=== PATIENT | male | born 1965 | race Caucasian/White ===

== ENCOUNTER 2021-06-24 08:21 | Emergency (ER) | payer OTHER ==
[~2021-06-24] VITALS: Ht 195.6 cm; Wt 140.6 kg
[2021-06-24 09:15] LABS: Calcium, Ionized (POC) 1.02 mmol/L (1.10-1.46); Chloride (POC) 92 mmol/L (98-108); Creatinine (POC) 1.8 mg/dL (0.8-1.3); Glucose (ISTAT POC) 139 mg/dL (70-99); Hemoglobin (POC) 17.7 g/dL (13.5-17.5); Potassium (POC) 3.1 mmol/L (3.5-5.5); Sodium (POC) 125 mmol/L (135-148); Total CO2 (POC) 17 mmol/L (21-32)
[2021-06-24 09:24] LABS: BASOPHILS ABSOLUTE AUTO 0.01 K/mm3 (0.00-0.23); BASOPHILS PERCENT AUTO 0 % (0-2); EOSINOPHILS PERCENT AUTO 0 % (0-6); Hematocrit 48.7 % (37.0-53.0); Hemoglobin 17.9 g/dL (13.5-17.5); IMMATURE GRAN ABSOLUTE AUTO 0.02 K/mm3 (0.00-0.10); IMMATURE GRAN PERCENT AUTO 0 % (0-1); LYMPHOCYTES ABSOLUTE AUTO 1.41 K/mm3 (0.84-5.20); LYMPHOCYTES PERCENT AUTO 26 % (21-46); MONOCYTES ABSOLUTE AUTO 0.38 K/mm3 (0.16-1.47); MONOCYTES PERCENT AUTO 7 % (4-13); Mean Corpuscular HGB 27.7 pg (26.0-34.0); Mean Corpuscular HGB Conc 36.8 g/dL (31.5-36.5); Mean Corpuscular Volume 75 fL (80-100); Mean Platelet Volume 11.2 fL (9.1-12.4); NEUTROPHILS PERCENT AUTO 66 % (41-73); Platelet Count 137 K/mm3 (150-400); RDW Coefficient Variation 13.1 % (11.7-14.2); Red Blood Cell Count 6.46 M/mm3 (4.30-5.90); White Blood Cell Count 5.42 K/mm3 (4.00-11.30)
[2021-06-24 09:41] LABS: Albumin, Blood 3.1 g/dL (3.4-5.0); Albumin/Globulin Ratio 0.8 (0.8-1.8); Bilirubin, Total 0.5 mg/dL (0.1-1.0); Bun/Creatinine Ratio 15.3 (12.0-20.0); Calcium, Blood 8.3 mg/dL (8.5-10.1); Creatinine, Blood 1.63 mg/dL (0.60-1.20); Globulin, Blood 4.1 g/dL (2.2-4.0); Magnesium, Blood 2.1 mg/dL (1.6-2.4); Total Protein, Blood 7.2 g/dL (6.4-8.2)
[2021-06-24] MEDS ORDERED: DECADRON6 M1 PO (12:05)
== END 2021-06-24 14:00 | disposition home or self-care (01) ==
LOC: ER 08:21
PROVIDERS: Emergency Medicine
DX: U07.1 COVID-19 (principal); J12.82 Pneumonia due to coronavirus disease 2019; R09.02 Hypoxemia; R56.9 Unspecified convulsions
CPT/HCPCS: 70450; 71045; 80047; 80053; 83735; 85014; 85025; 93005; 93010; 96361; 96374; 99285-25; A9270; J1100; J7030

== ENCOUNTER 2021-06-27 08:35 | Inpatient (IN) | payer OTHER ==
[~2021-06-27] VITALS: Ht 193 cm; Wt 153.5 kg
[~2021-06-27 08:35] MED LIST: DECADRON6 M1 PO
[2021-06-27 09:15] LABS: PCO2 Arterial 25.5 mmHg (35-45); PO2 Arterial 48.6 mmHg (80-100); pH Blood Arterial 7.55 (7.35-7.45)
[2021-06-27 09:33] LABS: BASOPHILS ABSOLUTE AUTO 0.01 K/mm3 (0.00-0.23); BASOPHILS PERCENT AUTO 0 % (0-2); EOSINOPHILS PERCENT AUTO 0 % (0-6); Hematocrit 46.3 % (37.0-53.0); Hemoglobin 16.3 g/dL (13.5-17.5); IMMATURE GRAN ABSOLUTE AUTO 0.06 K/mm3 (0.00-0.10); IMMATURE GRAN PERCENT AUTO 1 % (0-1); LYMPHOCYTES ABSOLUTE AUTO 0.71 K/mm3 (0.84-5.20); LYMPHOCYTES PERCENT AUTO 10 % (21-46); MONOCYTES ABSOLUTE AUTO 0.47 K/mm3 (0.16-1.47); MONOCYTES PERCENT AUTO 7 % (4-13); Mean Corpuscular HGB 27.7 pg (26.0-34.0); Mean Corpuscular HGB Conc 35.2 g/dL (31.5-36.5); Mean Corpuscular Volume 79 fL (80-100); Mean Platelet Volume 9.8 fL (9.1-12.4); NEUTROPHILS ABSOLUTE AUTO 5.96 K/mm3 (1.96-9.15); NEUTROPHILS PERCENT AUTO 83 % (41-73); Platelet Count 170 K/mm3 (150-400); RDW Coefficient Variation 13.3 % (11.7-14.2); RDW Standard Deviation 38.1 fL (35.1-46.3); Red Blood Cell Count 5.89 M/mm3 (4.30-5.90); White Blood Cell Count 7.21 K/mm3 (4.00-11.30)
[2021-06-27 10:08] LABS: Albumin, Blood 2.9 g/dL (3.4-5.0); Albumin/Globulin Ratio 0.8 (0.8-1.8); Bilirubin, Total 0.9 mg/dL (0.1-1.0); Bun/Creatinine Ratio 27.3 (12.0-20.0); Calcium, Blood 7.9 mg/dL (8.5-10.1); Creatinine, Blood 1.28 mg/dL (0.60-1.20); Globulin, Blood 3.7 g/dL (2.2-4.0); Potassium, Blood 3.8 mmol/L (3.5-5.5); Total Protein, Blood 6.6 g/dL (6.4-8.2)
--- NOTE | 2021-06-27 15:55 | NUR ---
PATIENT ARRIVED TO PCU PATIENT ARRIVED TO PCU BY ED BED. PATIENT ARRIVED APROX 1430. PATIENT TRANSFERED FROM ED BED TO PCU BY STAND BY ASSIST. VSS. TELE SR 70S. SPO2 >90% ON ARIVO AT 63L 92%. PATIENT ALERT AND ORIENTATED X4. PATIENT REPORTS NO SHORTNESS OF BREATH OR CHEST PAIN. PATIENT ORIENTATED TO PCU ROOM AND CALL LIGHT. PATIENT REPORTS NO PAIN. CALL LIGHT WITHIN REACH. WILL CONTINUE TO MONITOR AND PROVIDE CARE.
--- NOTE | 2021-06-27 18:03 | NUR ---
SHIFT SUMMARY PATIENT A/O X4. VSS. SPO2 >90% ON ARIVO 60L 93%. TELE SR 70S. PATIENT REPORTS NO CHEST PAIN, SHORTNESS OF BREATH, OR PAIN. NO ACUTE CHANGES THIS SHIFT. CALL LIGHT WITHIN REACH. WILL CONTINUE TO MONITOR AND PROVIDE CARE UNTIL HAND OFF WITH NEXT SHIFT.
--- NOTE | 2021-06-27 22:19 | NUR ---
REMOVED LEFT HAND IV - IV WOULDN'T FLUSH - CATH INTACT, NO REDNESS OR IRRITATION AT IV SITE.
[2021-06-28 04:28] LABS: BASOPHILS ABSOLUTE AUTO 0.01 K/mm3 (0.00-0.23); BASOPHILS PERCENT AUTO 0 % (0-2); EOSINOPHILS PERCENT AUTO 0 % (0-6); Hematocrit 44.4 % (37.0-53.0); Hemoglobin 15.4 g/dL (13.5-17.5); IMMATURE GRAN ABSOLUTE AUTO 0.04 K/mm3 (0.00-0.10); IMMATURE GRAN PERCENT AUTO 1 % (0-1); LYMPHOCYTES PERCENT AUTO 9 % (21-46); MONOCYTES ABSOLUTE AUTO 0.56 K/mm3 (0.16-1.47); MONOCYTES PERCENT AUTO 7 % (4-13); Mean Corpuscular HGB 27.9 pg (26.0-34.0); Mean Corpuscular HGB Conc 34.7 g/dL (31.5-36.5); Mean Corpuscular Volume 81 fL (80-100); Mean Platelet Volume 9.9 fL (9.1-12.4); NEUTROPHILS ABSOLUTE AUTO 6.33 K/mm3 (1.96-9.15); NEUTROPHILS PERCENT AUTO 83 % (41-73); Platelet Count 164 K/mm3 (150-400); RDW Coefficient Variation 13.6 % (11.7-14.2); RDW Standard Deviation 39.8 fL (35.1-46.3); Red Blood Cell Count 5.51 M/mm3 (4.30-5.90); White Blood Cell Count 7.64 K/mm3 (4.00-11.30)
[2021-06-28 04:53] LABS: Alanine Aminotransfer (ALT/SGP 200 U/L (12-78); Albumin, Blood 2.5 g/dL (3.4-5.0); Albumin/Globulin Ratio 0.7 (0.8-1.8); Alk Phos 46 U/L (50-136); Anion Gap 7 mmol/L (6-16); Aspartate Aminotrans (AST/SGOT 148 U/L (12-37); Bilirubin, Total 0.5 mg/dL (0.1-1.0); Blood Urea Nitrogen 29 mg/dL (8-24); CO2, Blood 27 mmol/L (21-32); Calcium, Blood 7.5 mg/dL (8.5-10.1); Chloride, Blood 100 mmol/L (98-108); Creatinine, Blood 1.21 mg/dL (0.60-1.20); Globulin, Blood 3.5 g/dL (2.2-4.0); Glomerular Filtration Rate >60 (60-); Glucose, Blood 110 mg/dL (70-99); Magnesium, Blood 2.6 mg/dL (1.6-2.4); Potassium, Blood 4.1 mmol/L (3.5-5.5); Sodium, Blood 134 mmol/L (136-145)
--- NOTE | 2021-06-28 05:07 | NUR ---
PT APPARENTLY AWOKE, AND PULLED OFF HIS AIRVO, AND ATTEMPTED TO PLACE IT BACK ON. SATS DROPPED TO 76%, CAME TO THE ROOM, AND TOLD PT HE NEEDED TO PRONE. SATS CONTINUED TO STAY AROUND 82-83% ON AIRVO. RT CALLED FOR ASSIST. AIRVO WASN'T ON CORRECTLY, HOWEVER RT BROUGHT A BIPAP, AND SATS REBOUNDED TO 93%, 16/12/100% SETTINGS. PT REPORTS BREATHING EASIER NOW. JEREMY, RT CONTINUES IN THE ROOM ADJUSTING THE BIPAP SETTINGS.
--- NOTE | 2021-06-28 05:17 | NUR ---
SATS CURRENTLY 98-98%, BIPAP SETTING 20/10/80%. SATS 92% - PT LAYING ON HIS LEFT SIDE IN BED. RESP RATE 22-25. CALL LIGHT WITHIN REACH. BED IN LOW POSITION.
--- NOTE | 2021-06-28 05:41 | NUR ---
SHIFT SUMMARY - PT TOLERATING BEING PRONE FOR SEVERAL HOURS TONIGHT. PT HAD ONE EPISODE THIS AM WHERE HE AWOKE, AND DESAT'ED TO 76% - SEE LAST 2 NN - AND DOCUMENTED INTERVENTION. PT CONTINUES ON BIPAP - SATS WNL. OTHERWISE, NO ACUTE EVENTS THROUGHOUT THE NIGHT. CALL LIGHT WITHIN REACH. BED IN LOW POSITION. FLUIDS AT BEDSIDE.
[2021-06-28 10:55] LABS: Base Excess Venous 0.2 mmol/L; Bicarbonate Venous 25.7 mmol/L (24.0-30.0); PCO2 Venous 28.2 mmHg (38-42); PO2 Venous 99.8 mmHg (38-42); pH Blood Venous 7.52 (7.34-7.37)
--- NOTE | 2021-06-28 18:06 | NUR ---
END OF SHIFT SUMMARY: PATIENT WAS ATTEMPTED THIS MORNING TO THE AIRVO, PATIENT DID NOT SATURATE WELL WITH AIRVO AND WAS PLACED BACK ON BIPAP, PATIENT HAS BEEN RELUCTANT TO REPOSITION, HAS BEEN DENYING FOOD TRAYS. DENIES CHEST PAIN AT THIS TIME. BIPAP, AT 16/12 AT 70%. NS AT 75 HAS BEEN RUNNING THROUGH THE DAY. PATIENT HAS BEEN A STAND BY ASSIST FOR URINAL, DID NOT NEED HELP. UPDATED OF STATUS, RT HAS BEEN IN THE ROOM MULTIPLE TIMES CHECKING SETTINGS. PATIENT HAS COARSNESS IN THE UPPER LOBES, DIMINISHED IN THE RIGHT LOWEST LOBE.
[2021-06-29 03:44] LABS: Base Excess Venous 3.5 mmol/L; Bicarbonate Venous 27.9 mmol/L (24.0-30.0); PCO2 Venous 29.3 mmHg (38-42); pH Blood Venous 7.55 (7.34-7.37)
[2021-06-29 05:00] LABS: BASOPHILS ABSOLUTE AUTO 0.01 K/mm3 (0.00-0.23); BASOPHILS PERCENT AUTO 0 % (0-2); EOSINOPHILS PERCENT AUTO 0 % (0-6); Hematocrit 43.6 % (37.0-53.0); Hemoglobin 14.9 g/dL (13.5-17.5); IMMATURE GRAN ABSOLUTE AUTO 0.08 K/mm3 (0.00-0.10); IMMATURE GRAN PERCENT AUTO 1 % (0-1); LYMPHOCYTES ABSOLUTE AUTO 0.71 K/mm3 (0.84-5.20); LYMPHOCYTES PERCENT AUTO 7 % (21-46); MONOCYTES ABSOLUTE AUTO 0.47 K/mm3 (0.16-1.47); MONOCYTES PERCENT AUTO 4 % (4-13); Mean Corpuscular HGB 27.3 pg (26.0-34.0); Mean Corpuscular HGB Conc 34.2 g/dL (31.5-36.5); Mean Corpuscular Volume 80 fL (80-100); Mean Platelet Volume 10.3 fL (9.1-12.4); NEUTROPHILS ABSOLUTE AUTO 9.31 K/mm3 (1.96-9.15); NEUTROPHILS PERCENT AUTO 88 % (41-73); Platelet Count 208 K/mm3 (150-400); RDW Coefficient Variation 13.6 % (11.7-14.2); RDW Standard Deviation 39.8 fL (35.1-46.3); Red Blood Cell Count 5.46 M/mm3 (4.30-5.90); White Blood Cell Count 10.58 K/mm3 (4.00-11.30)
[2021-06-29 05:22] LABS: Alanine Aminotransfer (ALT/SGP 263 U/L (12-78); Albumin, Blood 2.4 g/dL (3.4-5.0); Albumin/Globulin Ratio 0.7 (0.8-1.8); Alk Phos 59 U/L (50-136); Anion Gap 7 mmol/L (6-16); Aspartate Aminotrans (AST/SGOT 165 U/L (12-37); Bilirubin, Total 0.6 mg/dL (0.1-1.0); Blood Urea Nitrogen 26 mg/dL (8-24); Bun/Creatinine Ratio 28.1 (12.0-20.0); CO2, Blood 25 mmol/L (21-32); Calcium, Blood 7.6 mg/dL (8.5-10.1); Chloride, Blood 105 mmol/L (98-108); Creatinine, Blood 0.92 mg/dL (0.60-1.20); Globulin, Blood 3.5 g/dL (2.2-4.0); Glomerular Filtration Rate >60 (60-); Glucose, Blood 108 mg/dL (70-99); Potassium, Blood 3.9 mmol/L (3.5-5.5); Sodium, Blood 137 mmol/L (136-145); Total Protein, Blood 5.9 g/dL (6.4-8.2)
--- NOTE | 2021-06-29 06:15 | NUR ---
SHIFT SUMMARY PT ALERT AND ORIENTED X4. COOPERATIVE TO CARE AND RESPONDS APPROPRIATELY. VSS. TELE READS 70 NSR. BP STABLE. O2 SATS MAINTAINING OVER 90% ON BIPAP 16/12 60% FIO2. CRITICAL VALUE VBG PH OF 7.55. PROVIDER NOTIFIED, ORDERED TO CONTINUE TO MONITOR. PT DENIES ANY PAIN. VOIDING WITH BEDSIDE URINAL. ENCOURAGED TO REPOSITION THROUGHOUT NIGHT. LEFT IN BED RESTING WITH CALL LIGHT IN REACH
--- NOTE | 2021-06-29 19:07 | NUR ---
END OF SHIFT SUMMARY: PATIENT REMAINS ON BIPAP, SETTINGS OF 60L AT 65% FIO2, TOLERATED THE AIRVO FOR ROUGHLY 2-4 HOURS, AND HAD A HARD TIME WHEN SWITCHED BACK TO ANN BIPAP TO THEN RETURN TO THE AIRVO. PATIENT IS CURRENTLY PRONED, SATURATING AT 98-100% PATIENT WAS PRONED SINCE 184. PREVIOUS SAT OF 93'S ON LEFT SIDE. PATIENT WAS ABLE TO EAT MORE TODAY THAN PREVIOUSLY. SR TODAY. PATIENT HAS HAD A COUPLE ELEVATED TEMPERATURES OF >100.0 tylenol prn has been ordered. 2 DOSES GIVEN. DENIES CHEST PAIN.
--- NOTE | 2021-06-29 23:02 | NUR ---
PT HAS, NOW TWO TIMES, GOTTEN UP OUT OF BED TO USE URINAL WITHOUT ASSISTANCE, IN DOING SO, THE TUBING TO THE BIPAP HAS COME APART OR THE MASK HAS COME APART. PT BEGAN TO DESAT AND DROPPED TO LOW 30%'S. PT VERY DIAPHORETIC AND DISORIENTED. LOC DECREASING. MASK PUT BACK ON AND PT BEGAN TO RECOVER SLOWLY. EDUCATED PATIENT ON IMPORTANCE OF USING CALL LIGHT AND ASKING FOR HELP. BED ALARM IS NOW SET.
[2021-06-30 04:03] LABS: BASOPHILS ABSOLUTE AUTO 0.03 K/mm3 (0.00-0.23); BASOPHILS PERCENT AUTO 0 % (0-2); EOSINOPHILS ABSOLUTE AUTO 0.01 K/mm3 (0.00-0.68); EOSINOPHILS PERCENT AUTO 0 % (0-6); Hematocrit 42.5 % (37.0-53.0); Hemoglobin 14.6 g/dL (13.5-17.5); IMMATURE GRAN ABSOLUTE AUTO 0.26 K/mm3 (0.00-0.10); IMMATURE GRAN PERCENT AUTO 2 % (0-1); LYMPHOCYTES ABSOLUTE AUTO 0.69 K/mm3 (0.84-5.20); LYMPHOCYTES PERCENT AUTO 4 % (21-46); MONOCYTES ABSOLUTE AUTO 0.64 K/mm3 (0.16-1.47); MONOCYTES PERCENT AUTO 4 % (4-13); Mean Corpuscular HGB 27.8 pg (26.0-34.0); Mean Corpuscular HGB Conc 34.4 g/dL (31.5-36.5); Mean Corpuscular Volume 81 fL (80-100); Mean Platelet Volume 10.3 fL (9.1-12.4); NEUTROPHILS ABSOLUTE AUTO 15.44 K/mm3 (1.96-9.15); NEUTROPHILS PERCENT AUTO 91 % (41-73); Platelet Count 173 K/mm3 (150-400); RDW Coefficient Variation 13.7 % (11.7-14.2); RDW Standard Deviation 40.3 fL (35.1-46.3); Red Blood Cell Count 5.25 M/mm3 (4.30-5.90); White Blood Cell Count 17.07 K/mm3 (4.00-11.30)
[2021-06-30 04:32] LABS: Anion Gap 6 mmol/L (6-16); Blood Urea Nitrogen 24 mg/dL (8-24); Bun/Creatinine Ratio 27.4 (12.0-20.0); CO2, Blood 24 mmol/L (21-32); Calcium, Blood 8.2 mg/dL (8.5-10.1); Chloride, Blood 108 mmol/L (98-108); Creatinine, Blood 0.88 mg/dL (0.60-1.20); Glomerular Filtration Rate >60 (60-); Glucose, Blood 104 mg/dL (70-99); Potassium, Blood 4.7 mmol/L (3.5-5.5); Sodium, Blood 138 mmol/L (136-145)
[2021-06-30 10:18] LABS: Base Excess Venous -5.4 mmol/L; Bicarbonate Venous 18.9 mmol/L (24.0-30.0); PCO2 Venous 65.9 mmHg (38-42); PO2 Venous 122 mmHg (38-42); pH Blood Venous 7.16 (7.34-7.37)
--- NOTE | 2021-06-30 18:58 | NUR ---
SHIFT SUMMARY PT INTUBATED AND SEDATED ON ARRIVAL, THEN PARALYZED WITH NIMBEX. ON LEVO T/O DAY FOR HYPOTENSION, LEVO TITRATED OFF THIS EVENING, BP CURRENTLY 118/78, HR 130 SIT. VENT AC 28, Vt 500, PEEP 10, FIO2 75%, SPO2 93% WITH DESAT ON REPOSITIONING, RR 28, PEAK PRESSURE 27. LS DIMINISHED MORESO ON R THAN LEFT, NO SECRETIONS FROM ETT THIS EVENING. PROPOFOL 55MCG, NIMBEX 2.5MCG, BIS 40'S, TOF 3/4. ABD DISTENDED, TF HELD TODAY FOR GASTRIC OUTPUT 450ML, AWARE. PT HAD A BM TODAY, URINE OUTPUT <30ML/HR. SO UPDATED. PT FEBRILE, TEMP 103, MEDICATED WITH TYLENOL THIS EVENING, ICE PACKS PLACED, FAN ON.
--- NOTE | 2021-06-30 19:40 | NUR ---
ASSUMPTION OF CARE PT REMAINS INTUBATED AT THIS TIME. VENT SETTINGS AC 24/500/10/100%. PT RECEIVING PROPOFOL 55MCG/KG/MIN, NIMBEX 2.5MCG/KG/MIN. OGT IN PLACE ON LOW INT SUCTION DRAINING DARK BROWN/BLACK FLUID. TF REMAINS STOPPED FROM PREVIOUS SHIFT. TEMP GOLDMAN IN PLACE DRAINING SMALL AMOUNT OF DARK YELLOW URINE. HR IN 130S, SBP 100S. TO4 0/4, BIS MONITOR SCORE OF 41. TEMP 103.3. SEVERAL ICE PACKS APPLIED. SEE SHIFT ASSESSMENT.
[2021-07-01 03:37] LABS: BASOPHILS PERCENT AUTO 0 % (0-2); EOSINOPHILS PERCENT AUTO 0 % (0-6); Hematocrit 48.7 % (37.0-53.0); Hemoglobin 15.4 g/dL (13.5-17.5); IMMATURE GRAN ABSOLUTE AUTO 0.78 K/mm3 (0.00-0.10); IMMATURE GRAN PERCENT AUTO 3 % (0-1); LYMPHOCYTES ABSOLUTE AUTO 1.06 K/mm3 (0.84-5.20); LYMPHOCYTES PERCENT AUTO 3 % (21-46); MONOCYTES PERCENT AUTO 3 % (4-13); Mean Corpuscular HGB 27.7 pg (26.0-34.0); Mean Corpuscular HGB Conc 31.6 g/dL (31.5-36.5); Mean Corpuscular Volume 88 fL (80-100); NEUTROPHILS ABSOLUTE AUTO 27.93 K/mm3 (1.96-9.15); NEUTROPHILS PERCENT AUTO 91 % (41-73); Platelet Count 136 K/mm3 (150-400); RDW Coefficient Variation 15.1 % (11.7-14.2); RDW Standard Deviation 48.9 fL (35.1-46.3); Red Blood Cell Count 5.55 M/mm3 (4.30-5.90); White Blood Cell Count 30.77 K/mm3 (4.00-11.30)
[2021-07-01 03:58] LABS: Albumin, Blood 2.5 g/dL (3.4-5.0); Albumin/Globulin Ratio 0.7 (0.8-1.8); Bilirubin, Total 0.9 mg/dL (0.1-1.0); Bun/Creatinine Ratio 11.9 (12.0-20.0); Calcium, Blood 7.2 mg/dL (8.5-10.1); Creatinine, Blood 3.85 mg/dL (0.60-1.20); Globulin, Blood 3.6 g/dL (2.2-4.0); Magnesium, Blood 2.8 mg/dL (1.6-2.4); Potassium, Blood 5.8 mmol/L (3.5-5.5); Total Protein, Blood 6.1 g/dL (6.4-8.2)
[2021-07-01 04:21] LABS: Phosphorus, Blood 8.3 mg/dL (2.5-4.9)
--- NOTE | 2021-07-01 06:56 | NUR ---
SHIFT SUMMARY PT REMAINS INTUBATED. VENT SETTINGS AC 24/450/12/100%. PT RECEIVING NIMBEX 2MCG/KG/MIN, AND PROPOFOL 55MCG/KG/MIN. TOF 0/4 THROUGHOUT SHIFT. BIS MONTIOR SCORE REMAINS 40-43. HR REMAINS IN 120S, SB 90S-100S. TMAX 103.5. GOLDMAN TEMP IN PLACE DRAINING DARK YELLOW URINE. SHIFT OUTPUT OF 100ML. AM LABS INDICATED CRITICAL PHOSPHORUS. DR CORLEY CALLED AND INFORMED OF SEVERAL AM LABS. TELEPHONE ORDERS GIVEN AND MEDICATIONS ADMINISTERED PER EMAR. SEE SHIFT ASSESSMENTS. WILL REPORT TO ONCOMING RN.
[2021-07-01 08:10] LABS: Source, Urine Catheter
[2021-07-01 08:10] LABS: Base Excess Venous -5.9 mmol/L; Bicarbonate Venous 18.3 mmol/L (24.0-30.0); PCO2 Venous 67.9 mmHg (38-42); PO2 Venous 55.1 mmHg (38-42); pH Blood Venous 7.14 (7.34-7.37)
[2021-07-01 08:22] LABS: Appearance, Urine Cloudy (Clear); Bilirubin, Urine Neg (Neg); Blood, Urine 5+ (Neg); Color, Urine Yellow (P-Yellow); Glucose Qualitative, Urine 2+ (Neg); Ketones, Urine Neg (Neg); Leukocyte Esterase, Urine 1+ (Neg); Nitrite, Urine Neg (Neg); Protein, Urine 4+ (Neg); Urobilinogen, Urine NORM (Normal)
--- NOTE | 2021-07-01 08:39 | NUR ---
ASSUMED CARE REPORT FROM ANNIE/IBAN BERRY AT 0700. PT INTUBATED, SEDATED AND PARALYZED. VENT SETTINGS AT SHIFT CHANGE AC 24/450/12/100%. O2 SATS DECREASED TO MID 80'S, INCREASED PEEP TO 14. NO CHANGED TO O2 SATS AT THIS TIME. WILL NOTIFY DR ROCHA. LUNGS DIM THROUGHOUT. NO SECRETIONS FROM ETT, PENDING COLLECTION OF SPUTUM SAMPLE. PT IN PRONE POSITION. NIMBEX GTT AT 2 MCG/KG/MIN, TO4 0/4, WILL TITRATE. PROPOFOL GTT AT 65 MCG/KG/MIN, BIS MONITOR 38. OGT TO LIS, CLAMPED FOR MED ADMINISTRATION. ABD ROUND, SOFT, NON TENDER. BT X 4. CVC TO RIJ, DRESSING C/D/I, POWERGLIDE TO LUE. MOTTLING TO LOWER LEGS AND FEET BILATERALLY. PULSES PALPABLE. TEMP 101.7, ICE PACKS AND FAN IN PLACE. ST RATE, 120'S ON MONITOR. MAP>65 AT THIS TIME, WILL START LEVO GTT IF NEEDED. WILL CONTINUE TO MONITOR CLOSELY.
[2021-07-01 08:49] LABS: Squamous Epithelial Cells Few /hpf (Few)
[2021-07-01 08:50] LABS: Amorphous Mod (0-Heavy); Bacteria Many /hpf
[2021-07-01 09:08] LABS: Calcium, Blood 8.6 mg/dL (8.5-10.1); Creatinine, Blood 4.44 mg/dL (0.60-1.20); Phosphorus, Blood 7.9 mg/dL (2.5-4.9); Potassium, Blood 5.1 mmol/L (3.5-5.5)
[2021-07-01 09:26] LABS: PCO2 Arterial 69.3 mmHg (35-45); PO2 Arterial 68.8 mmHg (80-100)
[2021-07-01 09:27] LABS: pH Blood Arterial 7.14 (7.35-7.45)
--- NOTE | 2021-07-01 13:17 | NUR ---
REASSESSMENT PT SUPINED AT 1230. TOLERATED WELL. VENT SETTINGS AC 24/450/18/80%. SATS HIGH 90'S. LEVO GTT CONTINUES. NIMBEX AND PROPOFOL TITRATED. MOTTLING TO MID THIGH, WORSE DISTAL. PLAN FOR TRIALYSIS CATH AND DIALYSIS THIS SHIFT. SO UPDATED.
[2021-07-01 14:15] LABS: Albumin, Blood 2.1 g/dL (3.4-5.0); Anion Gap 12 mmol/L (6-16); Blood Urea Nitrogen 52 mg/dL (8-24); Bun/Creatinine Ratio 10.2 (12.0-20.0); CO2, Blood 23 mmol/L (21-32); Calcium, Blood 7.5 mg/dL (8.5-10.1); Chloride, Blood 101 mmol/L (98-108); Creatinine, Blood 5.09 mg/dL (0.60-1.20); Glomerular Filtration Rate 12 (60-); Glucose, Blood 202 mg/dL (70-99); Potassium, Blood 5.4 mmol/L (3.5-5.5); Sodium, Blood 136 mmol/L (136-145)
[2021-07-01 14:23] LABS: Phosphorus, Blood 8.6 mg/dL (2.5-4.9)
--- NOTE | 2021-07-01 15:33 | NUR ---
AT 1515, DR. HAQUE ORDERED TO GET AN EKG. EKG OBTAINED BY JAMAL GONZALES. SHOWED DR. HAQUE EKG. SHE STATED SHE WOULD ORDER TROPONINS. NOTIFIED PRIMARY RN JANET.
[2021-07-01 18:50] LABS: Base Excess Venous -0.2 mmol/L; Bicarbonate Venous 22.5 mmol/L (24.0-30.0); PO2 Venous 48.1 mmHg (38-42); pH Blood Venous 7.22 (7.34-7.37)
--- NOTE | 2021-07-01 19:19 | NUR ---
SHIFT SUMMARY/STATUS CHANGE PT REMAINS INTUBATED AND SEDATED. VENT SETTINGS 24/450/18/100%. DIALYSIS CATH PLACED TO RIJ THIS SHIFT BY DR PAREDES. DURING DIALYSIS, PT HR CHANGED FROM ST TO 160, AFLUTTER. HYPOTENSIVE. DIALYSIS STOPPED, DR HAQUE NOTIFIED. LEVO INCREASED AND VASO ADDED. TITRATED FOR MAP>65. CVC REMAINS INTACT TO [facility]. PROPOFOL FOR SEDATION, BIS 20'S. NIMBEX, TO4 0/4. COMPLIANT c VENT. ELEVATED TROP AND EKG CHANGES THIS SHIFT, DR BARNES NOTIFIED. HEPARIN GTT PER PHARMACY ORDERED. ECHO AND GRANT/ART U/S COMPLETED THIS SHIFT. MOTTLING WORSE TO FEET AND BLE. GOLDMAN PATENT, 40 ML URINE OUTPUT THIS SHIFT. TUBE FEEDS RESTARTED. TMAX 102.2, FAN AND ICE PACKS IN PLACE. D/T PT'S DETERIORATION THIS SHIFT, FAMILY NOTIFIED AND AT BEDSIDE. UPDATED ON CONDITION BY DR HAQUE. REPORT TO ANNIE BERRY.
[2021-07-01 19:21] LABS: International Normalized Ratio 1.07; Prothrombin Time Results 11.5 Sec (9.7-11.5)
--- NOTE | 2021-07-01 19:21 | NUR ---
DIALYSIS AFTER PT ON TX FOR 1 HR AND 21 MIN, THE GENERATION ENGINEERING TECHNOLOGIST CAME AND SAID HE IS ABOUT TO CODE. RETURNED BLOOD. HR HAD SHOT UP TO 160. AFTER RETURNING THE BLOOD, NOTICED THE FAMILY HAD COME INTO THE ICU. DISCONNECTED MY MACHINE AND REMOVED IT FROM THE ROOM SO THE FAMILY COULD COME IN.
[2021-07-01 19:37] LABS: Albumin/Globulin Ratio 0.6 (0.8-1.8); Bilirubin, Total 0.7 mg/dL (0.1-1.0); Bun/Creatinine Ratio 4.2 (12.0-20.0); Calcium, Blood 7.1 mg/dL (8.5-10.1); Creatinine, Blood 4.31 mg/dL (0.60-1.20); Globulin, Blood 3.5 g/dL (2.2-4.0); Magnesium, Blood 2.7 mg/dL (1.6-2.4); Potassium, Blood 4.6 mmol/L (3.5-5.5); Total Protein, Blood 5.5 g/dL (6.4-8.2)
--- NOTE | 2021-07-01 21:15 | NUR ---
SHIFT ASSESSMENT ASSUMED CARE OF PT @ 1900. BEDSIDE REPORT RECEIVED FROM JAMAL GONZALES. PT INTUBATED, SEDATED, AND PARALYZED. PT TACHYCARDIC, AMIODARONE BOLUS GIVEN, AMIO GTT INFUSING, HR SLOWLY DECREASING. NIMBEX @ 1.75MCG/KG/HR c TOF: 0/4. PROPOFOL GTT @ 45MCG/KG/MIN c BIS RANGING FROM 30'S-LOW 40'S. HEPARIN @ 13U/KG/HR. VASOPRESSIN & LEVOPHED INFUSING FOR MAP GOAL OF 65, SEE FLOWSHEET. VENT SETTINGS-AC:24/450/100%/ PEEP-18 c O2 SATS >90%. TF INFUSING, NO RESIDUALS. TEMP GOLDMAN DRAINING SCANT AMNT OF DARK URINE. PT FEBRILE, ICE TO AXILLA AND GROIN, FAN ON PT, MEDICATING c PRN TYLENOL. MOTTLING TO BL EXTREMITIES, DECREASED CAPILLARY REFILL. PTS FAMILY AT BEDSIDE DUE TO PTS WORSENING CONDITION. WILL CONTINUE TO MONITOR CLOSELY.
[2021-07-02 04:29] LABS: Base Excess Venous -0.5 mmol/L; Bicarbonate Venous 22.7 mmol/L (24.0-30.0); PCO2 Venous 63.1 mmHg (38-42); PO2 Venous 56.8 mmHg (38-42); pH Blood Venous 7.24 (7.34-7.37)
[2021-07-02 04:29] LABS: BASOPHILS ABSOLUTE AUTO 0.07 K/mm3 (0.00-0.23); BASOPHILS PERCENT AUTO 0 % (0-2); EOSINOPHILS ABSOLUTE AUTO 0.01 K/mm3 (0.00-0.68); EOSINOPHILS PERCENT AUTO 0 % (0-6); Hematocrit 41.7 % (37.0-53.0); IMMATURE GRAN ABSOLUTE AUTO 0.96 K/mm3 (0.00-0.10); IMMATURE GRAN PERCENT AUTO 4 % (0-1); LYMPHOCYTES ABSOLUTE AUTO 0.91 K/mm3 (0.84-5.20); LYMPHOCYTES PERCENT AUTO 3 % (21-46); MONOCYTES ABSOLUTE AUTO 0.89 K/mm3 (0.16-1.47); MONOCYTES PERCENT AUTO 3 % (4-13); Mean Corpuscular HGB 27.5 pg (26.0-34.0); Mean Corpuscular HGB Conc 31.2 g/dL (31.5-36.5); Mean Corpuscular Volume 88 fL (80-100); Mean Platelet Volume 10.8 fL (9.1-12.4); NEUTROPHILS ABSOLUTE AUTO 24.86 K/mm3 (1.96-9.15); NEUTROPHILS PERCENT AUTO 90 % (41-73); Platelet Count 133 K/mm3 (150-400); RDW Coefficient Variation 15.3 % (11.7-14.2); RDW Standard Deviation 49.7 fL (35.1-46.3); Red Blood Cell Count 4.73 M/mm3 (4.30-5.90)
[2021-07-02 04:58] LABS: Alanine Aminotransfer (ALT/SGP 160 U/L (12-78); Albumin, Blood 1.8 g/dL (3.4-5.0); Albumin/Globulin Ratio 0.5 (0.8-1.8); Alk Phos 70 U/L (50-136); Anion Gap 10 mmol/L (6-16); Aspartate Aminotrans (AST/SGOT 96 U/L (12-37); Bilirubin, Total 0.6 mg/dL (0.1-1.0); Blood Urea Nitrogen 54 mg/dL (8-24); CO2, Blood 28 mmol/L (21-32); Calcium, Blood 6.4 mg/dL (8.5-10.1); Chloride, Blood 96 mmol/L (98-108); Creatinine, Blood 5.38 mg/dL (0.60-1.20); Globulin, Blood 3.5 g/dL (2.2-4.0); Glomerular Filtration Rate 11 (60-); Glucose, Blood 220 mg/dL (70-99); Magnesium, Blood 2.6 mg/dL (1.6-2.4); Phosphorus, Blood 7.8 mg/dL (2.5-4.9); Potassium, Blood 4.4 mmol/L (3.5-5.5); Sodium, Blood 134 mmol/L (136-145); Total Protein, Blood 5.3 g/dL (6.4-8.2); Vancomycin, Random 13.5 ug/mL
--- NOTE | 2021-07-02 07:21 | NUR ---
SHIFT SUMMARY PT REMAINS INTUBATED, SEDATED AND PARALYZED. NIMBEX TITRATED T/O THE NIGHT c TOF 0/4. AROUND 0600 TOF 4/4, NIMBEX CURRENTLY @ 0.75MCG/KG/MIN. PROPOFOL CONTINUES @ 45MCG/KG/MIN c BIS OF 35-40. AMIODARONE CONTINUES @ 0.5MG/HR, PT NOW IN ST AROUND 100BPM. HEPARIN GTT @ 13U/KG/HR. VASOPRESSIN ON SB, LEVOPHED @ 2MCG/MIN c MAP >65. TF CONTINUES @ GOAL, NO RESIDUALS. NO BM. TEMP GOLDMAN c 25ML URINE OUT. FEVER T/O THE NIGHT, MEDICATED c PRN ACETAMINOPHEN AND ICE PACKS PLACED TO AXILLA AND GROIN. R FOOT MOTTLING APPEARS TO BE WORSE, UNABLE TO OBTAIN DOPPLER PULSE. FAINT PULSE TO LEFT FOOT VIA DOPPLER. TROPONIN TRENDING DOWN. AM EKG COMPLETE, GIVEN TO DR HAQUE. REPORT GIVEN TO ONCOMING NURSE.
--- NOTE | 2021-07-02 08:00 | NUR ---
ASSUMED CARE OF PT, SEDATED AND INTUBATED, VENT SETTINGS 24/450/18/80, PT ON AMIODARONE 0.5, HEPARIN GTT AT 14MG/KG/HR, LEVOPHED AT 2 MCG, PROPOFOL AT 45 MCG, BICARB AT 200 MLS/HR, AND NIMBEX AT 1.25, TRAIN OF 4 IS 4 OUT OF 4, PT DESATS WITH ANY ACTIVITY OR CARES GIVEN
--- NOTE | 2021-07-02 17:13 | NUR ---
SUMMARY PT REMAINS SEDATED, PARALYZED, AND INTUBATED, 24/18/90% NIMBEX HAS BEEN TITRATED UP TO 2 AND TRAIN OF 4 IS NOW 0 OF 4, PT'S SATS IMPROVE WHEN PT ON HIS R SIDE, DECREASE WHEN ON THE L SIDE, /S.O. HAS BEEN UPDATED BY DR HAQUE, PT REMAINS MOTTLED FROM THE HIPS/THIGHS DOWN, PEDAL PULSES NOT PALPABLE, PT KINDRA TUBE FEEDS WITH MINIMAL RESIDUALS, WILL CONT TO MONITOR
--- NOTE | 2021-07-02 21:46 | NUR ---
SHIFT ASSESSMENT ASSUMED CARE OF PT @ 190. REPORT FROM JAMAL HENDERSON. PT INTUBATED, SEDATED, AND PARALYZED. VENT SETTINGS-AC:24/450/100% c O2 SATS > 90%. PT PRONED @ 1999, FIO2 TITRATED UP WHILE PRONING, WILL TITRATE DOWN APPROPRIATELY. NIMBEX 2MCG/KG/MIN c TOF-0/4, PROPOFOL @ 45MCG/KG/MIN c BIS OF 40, HEPARIN GTT @ 15U/KG/HR, NOREPINEPHRINE @ 2MCG/MIN c MAP >65, AND AMIODARONE @ 0.5MG/MIN. NSR ON THE MACHINE CLOTHING WORKER. TF @ GOAL. NO BM. TEMP GOLDMAN CATH DRAINING SCANT DARK YELLOW URINE. BL FEET COOL AND PURPLE, RIGHT SIGNIFICANTLY WORSE. WILL CONTINUE TO MONITOR CLOSELY.
[2021-07-03 03:59] LABS: BASOPHILS ABSOLUTE AUTO 0.12 K/mm3 (0.00-0.23); BASOPHILS PERCENT AUTO 0 % (0-2); EOSINOPHILS PERCENT AUTO 0 % (0-6); Hematocrit 36.7 % (37.0-53.0); Hemoglobin 11.7 g/dL (13.5-17.5); IMMATURE GRAN ABSOLUTE AUTO 1.47 K/mm3 (0.00-0.10); IMMATURE GRAN PERCENT AUTO 4 % (0-1); LYMPHOCYTES PERCENT AUTO 2 % (21-46); MONOCYTES ABSOLUTE AUTO 1.76 K/mm3 (0.16-1.47); MONOCYTES PERCENT AUTO 5 % (4-13); Mean Corpuscular HGB 27.8 pg (26.0-34.0); Mean Corpuscular HGB Conc 31.9 g/dL (31.5-36.5); Mean Corpuscular Volume 87 fL (80-100); Mean Platelet Volume 10.8 fL (9.1-12.4); NEUTROPHILS ABSOLUTE AUTO 35.14 K/mm3 (1.96-9.15); NEUTROPHILS PERCENT AUTO 90 % (41-73); Platelet Count 151 K/mm3 (150-400); RDW Coefficient Variation 15.4 % (11.7-14.2); RDW Standard Deviation 49.5 fL (35.1-46.3); Red Blood Cell Count 4.21 M/mm3 (4.30-5.90); White Blood Cell Count 39.09 K/mm3 (4.00-11.30)
[2021-07-03 04:24] LABS: Alanine Aminotransfer (ALT/SGP 143 U/L (12-78); Albumin, Blood 1.5 g/dL (3.4-5.0); Albumin/Globulin Ratio 0.4 (0.8-1.8); Alk Phos 79 U/L (50-136); Anion Gap 12 mmol/L (6-16); Aspartate Aminotrans (AST/SGOT 113 U/L (12-37); Bilirubin, Total 0.6 mg/dL (0.1-1.0); Blood Urea Nitrogen 71 mg/dL (8-24); Bun/Creatinine Ratio 10.6 (12.0-20.0); CO2, Blood 32 mmol/L (21-32); Calcium, Blood 6.1 mg/dL (8.5-10.1); Chloride, Blood 85 mmol/L (98-108); Creatinine, Blood 6.68 mg/dL (0.60-1.20); Globulin, Blood 3.7 g/dL (2.2-4.0); Glomerular Filtration Rate 9 (60-); Glucose, Blood 186 mg/dL (70-99); Magnesium, Blood 2.6 mg/dL (1.6-2.4); Potassium, Blood 4.7 mmol/L (3.5-5.5); Sodium, Blood 129 mmol/L (136-145); Total Protein, Blood 5.2 g/dL (6.4-8.2)
[2021-07-03 05:19] LABS: Phosphorus, Blood 8.1 mg/dL (2.5-4.9)
--- NOTE | 2021-07-03 06:50 | NUR ---
SHIFT SUMMARY PT REMAINS PRONE. VENT [id number]-24/450/90%/PEEP:18 c O2 SATS >90%. NIMBEX @ 1.5MCG/KG/MIN c TOF-2/4, PROPOFOL @ 45MCG/KG/MIN c BIS OF 40, HEPARIN @ 16U, AMIO @ 0.5MG/HR, AND LEVO @ 2MCG/MIN c MAP >65. BLE REMAIN PURPLE AND COOL TO TOUCH. TEMP GOLDMAN CATH PATENT, <15ML URINE OUT. TF CONTINUES @ GOAL, NO BM. REPORT GIVEN TO ONCOMING NURSE.
--- NOTE | 2021-07-03 08:00 | NUR ---
ASSUMED CARE OF THIS PATIENT, PARALYZED AND SEDATED, NIMBEX IS AT 1.5, PROPOFOL IS AT 45, VENT SETTINGS AC24/450/18/90%, PLAN FOR DIALYSIS TODAY, AMIODARONE IS AT 0.5, LEVOPHED IS AT 2, WILL TITRATE UP NEEDED FOR DIALYSIS
--- NOTE | 2021-07-03 11:02 | NUR ---
PT CURRENTLY GETTING DIALYSIS, LEVOPHED HAS BEEN TITRATED UP TO 6 MCG, HR REMAINS 90-100'S
--- NOTE | 2021-07-03 13:39 | NUR ---
UN-PRONED PT
--- NOTE | 2021-07-03 17:59 | NUR ---
SUMMARY PT REMAINS SEDATED AND PARALYZED, SIGNIFICANT OTHER HAS CALLED SEVERAL TIMES AND GOTTEN UPDATES, PT TOLERATED DIALYSIS, PT DID DESAT WHEN UN-PRONED, RECOVERED IN ABOUT 30 MINUTES, PT ALSO DESATS WHEN PLACED ON HIS L SIDE, SATS IMPROVE ON THE R SIDE, PT DOES HAVE BREATH SOUNDS BILATERALLY, LEVOPHED TITRATED DOWN AFTER DIALYSIS COMPLETED, PT DID HAVE A LARGE LOOSE BM TODAY, TOLERATING TUBE FEEDS WELL, WILL CONTINUE TO MONITOR
--- NOTE | 2021-07-03 22:12 | NUR ---
SHIFT ASSESSMENT ASSUMED CARE OF PT @ 1900. PT INTUBATED, SEDATED, AND PARALYZED. VENT SETTINGS-AC:24/450/90%/18 c O2 SATS >88%. NIMBEX, PROPOFOL, HEPARIN, AND AMIO INFUSING, SEE FLOWSHEET. BIS-38-45. TOF-0/4. LEVOPHED GTT @ 3MCG/MIN c MAP >65. NSR/ST ON THE MONITOR. TF REMAINS @ GOAL. TEMP GOLDMAN CATH c NO URINE OUT. BLE REMAIN PURPLE, NO PULSE VIA DOPPLER TO R FOOT.
[2021-07-04 04:15] LABS: Hematocrit 34.6 % (37.0-53.0); Mean Corpuscular HGB Conc 31.8 g/dL (31.5-36.5); Mean Corpuscular Volume 88 fL (80-100); Mean Platelet Volume 11.6 fL (9.1-12.4); NRBC ABSOLUTE 0.03 K/mm3 (0.00-0.02); NRBC Auto 0.1 /100 WBC (0.0-0.2); Platelet Count 197 K/mm3 (150-400); RDW Coefficient Variation 15.9 % (11.7-14.2); RDW Standard Deviation 51.1 fL (35.1-46.3); Red Blood Cell Count 3.93 M/mm3 (4.30-5.90); White Blood Cell Count 33.66 K/mm3 (4.00-11.30)
[2021-07-04 04:48] LABS: Magnesium, Blood 2.6 mg/dL (1.6-2.4)
[2021-07-04 04:50] LABS: Albumin, Blood 1.4 g/dL (3.4-5.0); Anion Gap 7 mmol/L (6-16); Blood Urea Nitrogen 66 mg/dL (8-24); Bun/Creatinine Ratio 10.4 (12.0-20.0); CO2, Blood 32 mmol/L (21-32); Calcium, Blood 6.5 mg/dL (8.5-10.1); Chloride, Blood 89 mmol/L (98-108); Creatinine, Blood 6.33 mg/dL (0.60-1.20); Glomerular Filtration Rate 9 (60-); Glucose, Blood 127 mg/dL (70-99); Phosphorus, Blood 8.7 mg/dL (2.5-4.9); Potassium, Blood 5.4 mmol/L (3.5-5.5); Sodium, Blood 128 mmol/L (136-145)
[2021-07-04 06:13] LABS: BAND PERCENT MAN 4 % (0-8); BASOPHILS PERCENT MAN 0 % (0-2); EOSINOPHILS PERCENT MAN 0 % (0-6); LYMPHOCYTES ABSOLUTE MAN 0.67 K/mm3 (0.84-5.20); LYMPHOCYTES PERCENT MAN 2 % (21-46); METAMYELOCYTE ABSOLUTE MAN 0.33 K/mm3 (0.00-0.00); METAMYELOCYTE PERCENT MAN 1 % (0-0); MONOCYTES ABSOLUTE MAN 1.68 K/mm3 (0.16-1.47); MONOCYTES PERCENT MAN 5 % (4-13); MYELOCYTE ABSOLUTE MAN 0.33 K/mm3 (0.00-0.00); MYELOCYTE PERCENT MAN 1 % (0-0); NEUTROPHILS ABSOLUTE MAN 30.63 K/mm3 (1.96-9.15); SEG NEUTROPHILS PERCENT MAN 87 % (41-73); TOTAL CELLS COUNTED 100
--- NOTE | 2021-07-04 07:48 | NUR ---
SHIFT SUMMARY PT REMAINS INTUBATED, SEDATED, AND PARALYZED. SEE FLOWSHEET FOR MED TITRATION. TEMP GOLDMAN CATH WITH NO OUTPUT, PT AFEBRILE. TF REMAINS AT GOAL, NO BM DURING THE NIGHT. PT TOLERATES TURNS TO RIGHT AND SUPINE, WHEN ON LEFT SIDE O2 SATS DROP TO LOW 80'S WITH FIO2 @ 100%. BLE CONTINUE TO BE COLD AND PURPLE. REPORT GIVEN TO ONCOMING NURSE.
--- NOTE | 2021-07-04 11:36 | NUR ---
After being asked by RN Carlee to inform patient's SO of patient's declining condition, I call Brianna on the phone. After answering a few questions, Brianna tells me that she is coming in immediately. She arrives with two of patient's children. I provide emotional support and prayer with family. Family responds well and shows signs of being encouraged. I will continue to remain available to patient and family.
--- NOTE | 2021-07-04 13:45 | NUR ---
Bereavement follow-up call made. I talked with Brianna on the phone and she is grieving appropriately. I provide therapeutic listening and grief support. I also gather home information. Brianna states that she would like Cristophre sent to [facility] in [place]. Brianna responds well to the call and shows signs of being comforted.
--- NOTE | 2021-07-04 14:48 | NUR ---
CARE ASSUMED/ CARE ASSUMED, PT REMAINS ON VENT AC 24, Vt 450, PEEP 18, FIO2 95%, SPO2 90'S, RR 24, PEAK PRESSURE 30'S. LS DIMINISHED, SCANT ETT SECRETIONS. HR 110 SIT WITHOUT ECTOPY, AMIO INFUSING AT 0.5MG/HR, BP SOFT WITH LEVOPHED 14MCG. PROPOFOL 40 MCG, NIMBEX INCREASED TO 2MCG FOR TOF 4/4, BIS 40'S. PT NOT IN RESTRAINTS, NO MOVEMENT. HEPARIN INFUSING AT 16U/HR PER PHARMACY. AM CARES COMPLETED, PT REPOSITIONED ONTO R SIDE HE DOES NOT TOLERATE L TURNS PER PREVIOUS RN REPORT. SPO2 DECREASED TO 80'S, BP BECAME HYPOTENSIVE DESPITE LEVOPHED. RETURNED TO SUPINE POSITION, BOOSTED, SPO2 CONTINUES TO DROP TO 70'S, BP DECREASING, VASO RESUMED. DR. RIEBRA AT BEDSIDE, EPI ADDED, AMIO, PROPOFOL, AND NIMBEX STOPPED, BP STABILIZED FOR A SHORT TIME WITH PRESSORS. FIO2 INCREASED TO 100%, NO OTHER VENT CHANGES MADE, SPO2 REMAINS 70'S. PT'S FAMILY CALLED, S/O AND ADULT KIDS ARRIVED AT BEDSIDE TO BE WITH PATIENT, FAMILY AWARE OF GRAVITY OF SITUATION, PT MADE DNR PER FAMILY'S CHOICE. PT BECAME SLOWLY BRADYCARDIC DESPITE MAX EPI, LEVO, AND VASO, NO ADDITIONAL PRESSOR ESCALATION PER DR. ROUSSEAU. SPO2 CONTINUED TO DROP, FAMILY AGREED TO SHUT OFF PRESSORS. PT BECAME BRADYCARDIC AND THEN ASYSTOLIC, VENT SHUT OFF, TIME OF 1204. FAMILY WAS AT BEDSIDE T/O PROGRESSION TOWARDS , BELONGINGS SENT HOME WITH S/O.
[2021-07-05 02:09] LABS: HBSAG SCREEN Negative (Negative); HEP A AB, IGM Negative (Negative); HEP B CORE AB, IGM Negative (Negative); HEP C VIRUS AB 0.2 (0.0-0.9)
== END 2021-07-04 12:04 | DRG 207 ==
LOC: ER 08:35 → ERHOLD 11:40 → ICUE 11:40 → PCU 14:30 → ICUE 06-30 06:09
PROVIDERS: Emergency Medicine; Family Medicine; Internal Medicine; Internal Medicine Cardiovascular Disease; Internal Medicine Critical Care Medicine; Nurse Practitioner Acute Care; Student in an Organized Health Care Education/Training Program; ADMIT Internal Medicine
PROC: 8E0ZXY6 Isolation (ICD-10-PCS; 2021-06-27)
PROC: 5A09457 Assistance with Respiratory Ventilation, 24-96 Consecutive Hours, Continuous Positive Airway Pressure (ICD-10-PCS; 2021-06-28)
PROC: 3E0333Z Introduction of Anti-inflammatory into Peripheral Vein, Percutaneous Approach (ICD-10-PCS; 2021-06-28)
PROC: XW033E5 Introduction of Remdesivir Anti-infective into Peripheral Vein, Percutaneous Approach, New Technology Group 5 (ICD-10-PCS; 2021-06-28)
PROC: 5A1955Z Respiratory Ventilation, Greater than 96 Consecutive Hours (ICD-10-PCS; principal; 2021-06-30)
PROC: 02HV33Z Insertion of Infusion Device into Superior Vena Cava, Percutaneous Approach (ICD-10-PCS; 2021-06-30)
PROC: 3E043XZ Introduction of Vasopressor into Central Vein, Percutaneous Approach (ICD-10-PCS; 2021-06-30)
PROC: 0BH18EZ Insertion of Endotracheal Airway into Trachea, Via Natural or Artificial Opening Endoscopic (ICD-10-PCS; 2021-06-30)
PROC: 02HV33Z Insertion of Infusion Device into Superior Vena Cava, Percutaneous Approach (ICD-10-PCS; 2021-07-02)
PROC: 5A1D70Z Performance of Urinary Filtration, Intermittent, Less than 6 Hours Per Day (ICD-10-PCS; 2021-07-03)
DX: U07.1 COVID-19 (principal); J12.82 Pneumonia due to coronavirus disease 2019; N17.0 Acute kidney failure with tubular necrosis; G92 Toxic encephalopathy; J80 Acute respiratory distress syndrome; A41.89 Other specified sepsis; R65.21 Severe sepsis with septic shock; Z66 Do not resuscitate; I21.A1 Myocardial infarction type 2; E87.1 Hypo-osmolality and hyponatremia; I48.92 Unspecified atrial flutter; E87.2 Acidosis; I82.403 Acute embolism and thrombosis of unspecified deep veins of lower extremity, bilateral; E87.6 Hypokalemia; E83.39 Other disorders of phosphorus metabolism; E66.01 Morbid (severe) obesity due to excess calories; R56.9 Unspecified convulsions; R74.01 Elevation of levels of liver transaminase levels; Z68.36 Body mass index [BMI] 36.0-36.9, adult; E87.5 Hyperkalemia; E83.42 Hypomagnesemia; E83.51 Hypocalcemia; D69.6 Thrombocytopenia, unspecified; R34 Anuria and oliguria
CPT/HCPCS: 31500; 36415; 36556; 36600; 51702; 71045; 71260; 76770; 80048; 80053; 80069; 80074; 80202; 81001; 82330; 82550; 82728; 82803; 82947; 83615; 83735; 84100; 84484; 85025; 85610; 85730; 86317; 87040; 87070; 87086; 87205; 93005; 93010; 93306; 93925; 93970; 94002; 94003; 94660; 94762; 99285-25; A9270; C1751; C1752; C9113; J0171; J0282; J0330; J0461; J0610; J0692; J0696; J1100; J1644; J1650; J1815; J1940; J2060; J2250; J2704; J3010; J3370; J7030; J7040; J7050; J7060; J7070; Q9967